=== PATIENT | female | born 1955 | race Caucasian/White ===

== ENCOUNTER 2020-06-10 18:30 | Emergency (ER) | payer MEDICARE | END 2020-06-10 19:20 | disposition left against medical advice (07) | LOC: ER1 18:30 | DX: Z53.21 Procedure and treatment not carried out due to patient leaving prior to being seen by health care provider (principal) ==

== ENCOUNTER 2021-04-27 09:44 | Emergency (ER) | payer OTHER | END 2021-04-27 13:27 | disposition home or self-care (01) | LOC: ER1 09:44 | DX: Z02.3 Encounter for examination for recruitment to armed forces (principal) | CPT/HCPCS: 71045; 72128; 72131; 99284 ==